=== PATIENT | male | born 1990 | race Caucasian/White ===

== ENCOUNTER 2016-09-23 12:29 | Emergency (ER) | payer OTHER ==
[2016-09-23] MEDS ORDERED: Lidocaine 1% 20 ML MDV INJECT ONE (13:14)
[2016-09-23] MEDS ORDERED: Bupivacaine 0.5% 10 ML SDV INJECT ONE (13:14)
[2016-09-23] MEDS ORDERED: Diphtheria,Pertussis(Acell),Tetanus Vaccine 0.5 ML Syringe IM ONE (13:14)
--- NOTE | 2016-09-23 13:51 | EDM.PDOC ---
ED HPI GENERAL MEDICAL PROBLEM - General Chief Complaint: Laceration Stated Complaint: PT HURT LT HAND Time Seen by Provider: 09/23/16 12:35 - History of Present Illness INITIAL COMMENTS - FREE TEXT/NARRATIVE: History of present illness: []Patient cut his left hand with a knife prior to arrival. He has no other injuries is unable to Stop bleeding. Review of systems: As per history of present illness and below otherwise all systems reviewed and negative. Past medical history: As per history of present illness and as reviewed below otherwise noncontributory. Surgical history: As per history of present illness and as reviewed below otherwise noncontributory. Social history: No reported history of drug or alcohol abuse. Family history: As per history of present illness and as reviewed below otherwise noncontributory. Physical exam: General: Well developed, well nourished in NAD HEENT: Atraumatic, normocephalic, pupils reactive, negative for conjunctival pallor or scleral icterus, mucous membranes moist, throat clear, neck supple, nontender, trachea midline. Lungs: Clear to auscultation, breath sounds equal bilaterally, chest nontender. Heart: S1S2, regular, negative for clicks, rubs, or JVD. Abdomen: Soft, nondistended, nontender. Negative for masses or hepatosplenomegaly. Negative for costovertebral tenderness. Pelvis: Stable nontender. Genitourinary: Deferred. Rectal: Deferred. Extremities: 2 half centimeter straight Superficial laceration of the left palm , full range of motion sensory intact. negative for cords or calf pain. Neurovascular unremarkable. Neuro: Awake, alert, oriented. Cranial nerves II through XII unremarkable. Cerebellum unremarkable. Motor and sensory unremarkable throughout. Exam nonfocal. Diagnostics: [] Therapeutics: []Wound sutured after being anesthetized Impression: []Left hand laceration Plan: []Sutures out in 7-10 days keep wound dry for 24 hours follow-up PMD as needed return if symptoms worsen or change Definitive disposition and diagnosis as appropriate pending reevaluation and review of above. - Related Data Allergies Allergy/AdvReac Type Severity Reaction Status Date / Time No Known Allergies Allergy Verified 09/23/16 13:02 Home Meds: Home Meds . [No Known Home Meds] 09/23/16 [History] Past Medical History - Past Health History Medical/Surgical History: Denies Medical/Surgical History Social & Family History - Tobacco Use Smoking Status *Q: Current Every Day Smoker Years of Tobacco use: 7 Packs/Tins Daily: 0.5 Used Tobacco, but Quit: No Second Hand Smoke Exposure: No - Caffeine Use Caffeine Use: Reports: Coffee, Energy Drinks, Soda, Tea - Alcohol Use Days Per Week of Alcohol Use: 7 Number of Drinks Per Day: 3 Total Drinks Per Week: 21 - Recreational Drug Use Recreational Drug Use: No ED ROS GENERAL - Review of Systems Review Of Systems: See Below (See history of present illness) ED EXAM, SKIN/RASH Exam: See Below (See history of present illness) ED SKIN PROCEDURES - Laceration/Wound Repair Left Hand Lac/wound length in cm: 2.5 Appearance: Subcutaneous Local Anesthesia - Lidocaine (Xylocaine): 1% Plain Local Anesthesia - Bupivicaine (Marcaine): 0.5% Plain Local Anesthetic Volume: 2cc Skin Prep: Chlorhexidine (Hibiciens) Suture Size: other (5-0 nylon) Course - Vital Signs Last Recorded V/S: Last Vital Signs Temp 36.5 C 09/23/16 13:01 Pulse 60 09/23/16 13:01 Resp 16 09/23/16 13:01 BP 132/69 09/23/16 13:01 Pulse Ox 98 09/23/16 13:01 - Orders/Labs/Meds Orders: Active Orders 24 hr Category Date Time Status Communication Order [RC] STAT Care 09/23/16 13:15 Active Vaccines to be Administered [RC] PER UNIT ROUTINE Care 09/23/16 13:14 Active Meds: Medications Discontinued Medications Generic Name Dose Route Start Last Admin Trade Name Sadiq PRN Reason Stop Dose Admin Bupivacaine HCl 10 ml 09/23/16 13:14 09/23/16 13:56 Sensorcaine-Mpf 0.5% INJECT 09/23/16 13:15 10 ml ONETIME ONE Administration Diphtheria/Tetanus/Acell Pertussis 0.5 ml 09/23/16 13:14 09/23/16 13:54 Adacel IM 09/23/16 13:15 0.5 ml .ONCE ONE Administration Lidocaine HCl 20 ml 09/23/16 13:14 09/23/16 13:56 Xylocaine 1% INJECT 09/23/16 13:15 20 ml ONETIME ONE Administration Departure - Departure Time of Disposition: 14:10 Disposition: Home, Self-Care 01 Condition: good Clinical Impression: Laceration of left hand Qualifiers: Encounter type: initial encounter Foreign body presence: with foreign body Qualified Code(s): S61.422A - Laceration with foreign body of left hand, initial encounter - Discharge Information Forms: ED Department Discharge Additional Instructions: The following information is given to patients seen in the emergency department who are being discharged to home. This information is to outline your options for follow-up care. We provide all patients seen in our emergency department with a follow-up referral. The need for follow-up, as well as the timing and circumstances, are variable depending upon the specifics of your emergency department visit. If you don't have a primary care physician on staff, we will provide you with a referral. We always advise you to contact your personal physician following an emergency department visit to inform them of the circumstance of the visit and for follow-up with them and/or the need for any referrals to a consulting specialist. The emergency department will also refer you to a specialist when appropriate. This referral assures that you have the opportunity for follow-up care with a specialist. All of these measure are taken in an effort to provide you with optimal care, which includes your follow-up. Under all circumstances we always encourage you to contact your private physician who remains a resource for coordinating your care. When calling for follow-up care, please make the office aware that this follow-up is from your recent emergency room visit. If for any reason you are refused follow-up, please contact the [facility] Emergency Department at and asked to speak to the emergency department charge nurse. Sutures out 7-10 days, keep wound dry for 24 hours, Tylenol or Motrin for pain, follow-up with Dr. Parker as needed. Return if symptoms change or worsen. [facility] - Plastic Surgery Professional Building [address] [place] [address], [address] [place] [address] - My Orders Last 24 Hours: My Active Orders 09/23/16 13:14 Vaccines to be Administered [RC] PER UNIT ROUTINE 09/23/16 13:15 Communication Order [RC] STAT - Assessment/Plan Last 24 Hours: My Active Orders 09/23/16 13:14 Vaccines to be Administered [RC] PER UNIT ROUTINE 09/23/16 13:15 Communication Order [RC] STAT
[2016-09-23 14:23] VITALS: BP 118/69
== END 2016-09-23 14:35 | disposition home or self-care (01) ==
LOC: MW.ED 12:29
DX: S61.422A Laceration with foreign body of left hand, initial encounter (principal); F17.210 Nicotine dependence, cigarettes, uncomplicated; Z23 Encounter for immunization; W26.0XXA Contact with knife, initial encounter
CPT/HCPCS: 12001; 90471; 90715; 99282; 99282-25